=== PATIENT | female | born 1945 | race Caucasian/White ===

== ENCOUNTER 2019-07-30 15:05 | Emergency (ER) | payer MEDICARE, OTHER ==
--- NOTE | 2019-07-30 15:29 | Emergency Department Record ---
History of Present Illness - General Chief complaint: Abscess Stated complaint: SORE ON ABD Time Seen by Provider: 07/30/19 15:15 Source: Patient Mode of Arrival: Ambulatory Limitations: No limitations - History of Present Illness Initial comments: 73 yo female presents with an area in the midline lower abdomen that has been draining over the last month. Today it drain more with some blood. No pain. No fever. No redness. No swelling. Dr Andrade is her PCP. complaint: Abscess/boil Onset/Timin -: Month(s) Severity: Mild Severity scale (1-10): 3 Improves with: None Worsens with: None Context: None Associated symptoms: Denies other symptoms Treatments Prior to Arrival: None - Related Data Home Medications Medication Instructions Recorded Confirmed Last Taken Budesonide 0.5 mg IH DAILY 07/30/19 07/30/19 Unknown Previous Rx's Medication Instructions Recorded Clindamycin HCl [Cleocin HCl] 300 mg PO TID #21 capsule 07/30/19 Allergies Allergy/AdvReac Type Severity Reaction Status Date / Time No Known Drug Allergies Allergy Verified 07/30/19 15:12 Travel Screening - Travel/Exposure Within Last 30 Days Have you traveled within the last 30 days?: No Review of Systems Constitutional: Denies: Chills, Fever, Malaise, Weakness Eyes: Denies: Eye discharge ENT: Denies: Congestion, Throat pain Respiratory: Denies: Cough Cardiovascular: Denies: Chest pain, Palpitations, Syncope Endocrine: Denies: Fatigue, Polydipsia, Polyuria Gastrointestinal: Denies: Abdominal pain, Diarrhea, Nausea, Vomiting Genitourinary: Denies: Dysuria, Urgency Musculoskeletal: Denies: Arthralgia, Back pain, Joint swelling, Myalgia Skin: Reports: Lesions. Denies: Bruising, Change in color, Rash Neurological: Denies: Headache Psychiatric: Denies: Anxiety Hematological/Lymphatic: Denies: Easy bleeding, Easy bruising Past Medical History - SOCIAL HISTORY Smoking Status: Former smoker Alcohol Use: None Drug Use: None - RESPIRATORY Hx Respiratory Disorders: Yes Hx COPD: Yes Comment:: wears 2 L at all times - CARDIOVASCULAR Hx Cardio Disorders: No - NEURO Hx Neuro Disorders: No - GI Hx GI Disorders: No - Hx Genitourinary Disorders: No - ENDOCRINE Hx Endocrine Disorders: No - MUSCULOSKELETAL Hx Musculoskeletal Disorders: No - PSYCH Hx Psych Problems: No - HEMATOLOGY/ONCOLOGY Hx Hematology/Oncology Disorders: No Family Medical History Any Significant Family History?: No Physical Exam - General General Appearance: Alert, Oriented x3, Cooperative, No acute distress Limitations: No limitations - Head Head exam: Atraumatic, Normal inspection - Eye Eye exam: Normal appearance, PERRL. negative: Conjunctival injection, Scleral icterus - ENT ENT exam: Normal exam Ear exam: Normal external inspection Nasal Exam: Normal inspection Mouth exam: Normal external inspection - Neck Neck exam: Normal inspection - Respiratory Respiratory exam: Normal lung sounds bilaterally. negative: Respiratory distress - Cardiovascular Cardiovascular Exam: Regular rate, Normal rhythm, Normal heart sounds - GI/Abdominal GI/Abdominal exam: Soft, Normal bowel sounds, Other (25mm x 12mm open wound aboutr 1cm deep. Clean. Non tender. No pus. Appears to be a drained abscess that is completely drained). negative: Diminished bowel sounds, Distended, Guarding, Rebound, Tenderness - Rectal Rectal exam: Deferred - exam: Deferred - Extremities Extremities exam: Normal inspection Image of Full Body: 1 - 25mm x 12mm x 10 deep open wound. No purulence or fecal drainage. No surronding erythema - Neurological Neurological exam: Alert, Oriented X3 - Psychiatric Psychiatric exam: Normal affect, Normal mood - Skin Type of lesion: Abscess (opened and drained) Course Vital Signs 07/30/19 15:08 Temperature 98.0 F Pulse Rate 105 H Respiratory 22 Rate Blood Pressure 178/96 Pulse Ox 95 - Reevaluation(s) Reevaluation #1: 07/30/19 15:30 The area on the abdomen is 25mm x 12 mm and 10mm deep The area is not tender It appears to have been an abscess that has already drained leaving her an open wound No foul drainage or anything suspicious for a deeper fistula She has no abdominal pain or tenderness. The wound will be cleaned, packed and dressed. residential property manager saw the patient to arrange home health aid to assist with dressing changes every 2-3 days I JUSTA RN for Dr Andrade (she was gone for the day) The patient can call to schedule a visit this week I explained to the patient this is now a wound that will take many weeks to heal. She will need the visiting nurse to help with dressings and her PCP for close follow up. 07/30/19 15:42 Disposition Disposition: Discharge Clinical Impression: Wound of abdomen Disposition: Home, Self-Care Condition: (1) Good Instructions: Abscess (ED) Additional Instructions: Call your doctor today to schedule a recheck this week You will have a visiting nurse assigned to help change the dressings every 2-3 days. [facility] will call you at home. They can be reached at [phone]. If they do not call within 2 days of returning home, call them tos [facility] first visit. Return if you have fever, pain, increased drainage or any new concerns. Prescriptions: Clindamycin HCl [Cleocin HCl] 300 mg PO TID #21 capsule Forms: Patient Portal Access Time of Disposition: 15:36 Quality - Quality Measures Quality Measures: N/A - Blood Pressure Screening Does Patient Have Any of the Following: No Blood Pressure Classification: Hypertensive Reading Systolic Measurement: 178 Diastolic Measurement: 96 Screening for High Blood Pressure: < Pre-Hypertensive BP, F/U Documented > [[id number]] Pre-Hypertensive Follow-up Interventions: Referral to alternative/primary care provider.
[2019-07-30] MEDS: CLINDAMYCIN 150 MG CAP PO ONE (15:44)
== END 2019-07-30 16:13 | disposition home or self-care (01) ==
LOC: ER 15:05
DX: L02.211 Cutaneous abscess of abdominal wall (principal); Z87.891 Personal history of nicotine dependence; J44.9 Chronic obstructive pulmonary disease, unspecified; Z99.81 Dependence on supplemental oxygen
CPT/HCPCS: 99284